=== PATIENT | female | born 1960 | race Two or more races ===

== ENCOUNTER 2017-03-22 17:47 | Emergency (ER) | payer SELFPAY ==
[2017-03-22 17:52] VITALS: BMI 22.9
[2017-03-22] MEDS ORDERED: ACETAMINOPHEN 325 MG TABLET (FP) PO ONE (19:45)
[2017-03-22] MEDS ORDERED: VALSARTAN 80 MG TABLET (UD) PO ONE (19:45)
--- NOTE | 2017-03-22 19:45 | PDOC ---
History of Present Illness - General History Source: Patient Exam Limitations: No Limitations - History of Present Illness Initial Comments: 03/23/17 00:00 Patient is a 56-year-old female history of gallstone, pancreatitis who presents to the ED with worsening left ear pain, swelling and redness. Patient was seen in [facility] 03/20 was diagnosed with perichondritis and was discharged on Clinda and Cipro. Patient presents today with worsening left ear pain. She states that she took only 2 pills of her abx today because she felt nauseous. Patient reports dizziness and headache since this AM. <Nori Sewell - Last Filed: 03/23/17 00:02> <Elena Priest - Last Filed: 03/23/17 03:13> - General Chief Complaint: Lightheaded Stated Complaint: HEADACHE/NAUSEA Time Seen by Provider: 03/22/17 18:18 Past History <Nori Sewell - Last Filed: 03/23/17 00:02> - Past Medical History Other medical history: NONE - Psycho/Social/Smoking Cessation Hx Anxiety: No Suicidal Ideation: No Smoking History: Current every day smoker Have you smoked in the past 12 months: No Number of Cigarettes Smoked Daily: 3 Information on smoking cessation initiated: Yes 'Breaking Loose' booklet given: 03/22/17 Hx Alcohol Use: No Drug/Substance Use Hx: No Substance Use Type: None Hx Substance Use Treatment: No <Elena Priest - Last Filed: 03/23/17 03:13> - Past Medical History Allergies/Adverse Reactions: Allergies Allergy/AdvReac Type Severity Reaction Status Date / Time No Known Allergies Allergy Verified 03/22/17 17:52 Home Medications: Ambulatory Orders Aspirin [ASA -] 325 mg PO PRN 05/04/16 Acetaminophen [Pain Relief] 650 mg PO Q8H PRN #60 tablet.er 05/06/16 Ciprofloxacin HCl [Cipro] 500 mg PO BID #20 tablet 03/20/17 Clindamycin [Cleocin -] 300 mg PO Q6HPO #40 capsule 03/20/17 Review of Systems - Review of Systems Able to Perform ROS?: Yes Comments:: 03/23/17 00:02 GENERAL/CONSTITUTIONAL: No fever or chills. No weakness. HEAD, EYES, EARS, NOSE AND THROAT: (+)left ear pain and swelling. No change in vision. No ear discharge. No sore throat. CARDIOVASCULAR: No chest pain or shortness of breath. RESPIRATORY: No cough, wheezing, or hemoptysis. GASTROINTESTINAL: No nausea, vomiting, diarrhea or constipation. GENITOURINARY: No dysuria, frequency, or change in urination. MUSCULOSKELETAL: No joint or muscle swelling or pain. No neck or back pain. SKIN: No rash NEUROLOGIC: (+) dizziness, (+)headache No vertigo, loss of consciousness, or change in strength/sensation. ENDOCRINE: No increased thirst. No abnormal weight change. HEMATOLOGIC/LYMPHATIC: No anemia, easy bleeding, or history of blood clots. ALLERGIC/IMMUNOLOGIC: No hives or skin allergy. <Nori Sewell - Last Filed: 03/23/17 00:02> *Physical Exam - Vital Signs Last Vital Signs Temp Pulse Resp BP Pulse Ox 98.2 F 74 18 154/92 100 03/22/17 17:48 03/22/17 17:48 03/22/17 17:48 03/22/17 17:48 03/22/17 17:48 - Physical Exam Comments: 03/23/17 00:03 GENERAL: Awake, alert, and fully oriented, in no acute distress HEAD: No signs of trauma EYES: PERRLA, EOMI, sclera anicteric, conjunctiva clear ENT: (+)Left fabian cellulitis. Auricles normal inspection, hearing grossly normal , nares patent, oropharynx clear without exudates. Moist mucosa NECK: Normal ROM, supple, no lymphadenopathy, JVD, or masses LUNGS: Breath sounds equal, clear to auscultation bilaterally. No wheezes, and no crackles HEART: Regular rate and rhythm, normal S1 and S2, no murmurs, rubs or gallops ABDOMEN: Soft, nontender, normoactive bowel sounds. No guarding, no rebound. No masses EXTREMITIES: Normal range of motion, no edema. No clubbing or cyanosis. No cords, erythema, or tenderness NEUROLOGICAL: Intact, Cranial nerves II through XII grossly intact. Normal speech, normal gait SKIN: Warm, Dry, normal turgor, no rashes or lesions noted. <Nori Sewell - Last Filed: 03/23/17 00:02> - Vital Signs Last Vital Signs Temp Pulse Resp BP Pulse Ox 98.2 F 74 18 154/92 100 03/22/17 17:48 03/22/17 17:48 03/22/17 17:48 03/22/17 17:48 03/22/17 17:48 <Elena Priest - Last Filed: 03/23/17 03:13> ED Treatment Course - ADDITIONAL ORDERS Additional order review: Laboratory Results 03/22/17 18:47 POC Glucometer [id number] 03/22/17 18:47 POC Glucometer 95.37216 - Medications Given in the ED: ED Medications Discontinued Medications Generic Name Dose Route Start Last Admin Trade Name Charlotte PRN Reason Stop Dose Admin Acetaminophen 650 mg 03/22/17 19:45 03/22/17 20:07 Tylenol - PO 03/22/17 19:46 650 mg ONCE ONE Administration Valsartan 80 mg 03/22/17 19:45 03/22/17 20:07 Diovan - PO 03/22/17 19:46 80 mg ONCE ONE Administration <Nori Sewell - Last Filed: 03/23/17 00:02> - LABORATORY CBC & Chemistry Diagram: 03/23/17 00:22 - ADDITIONAL ORDERS Additional order review: Laboratory Results 03/22/17 18:47 POC Glucometer [id number] 03/22/17 18:47 POC Glucometer [id number] <Elena Priest - Last Filed: 03/23/17 03:13> Medical Decision Making - Medical Decision Making 03/22/17 21:54 Patient Name: Gabriella Jones THIS IS A PRELIMINARY REPORT FROM [facility] EXAM: CT head without contrast IMAGES: 73 DATE OF SERVICE: 20:45:17.0 HISTORY:Dizziness, headache, hypertension COMPARISON: None. FINDINGS: 1. There is no evidence of an acute intracranial process, intracranial hemorrhage or mass effect. 2. The ventricles are normal size. 3. The visualized portions of the orbits, paranasal and mastoid sinuses are unremarkable. THIS DOCUMENT HAS BEEN ELECTRONICALLY SIGNED 03/23/17 03:08 Pt comes with dizziness and HTN incidentally; I gave her a dose of diovan; head CT was done. Pt has a normal head CT. Pt's CC today is that her left pinna remains infected. She agrees that she has not been taking the abx she was prescribed properly. Yesterday she took her QID clindamycin only 3x; today she took clinda 1x. SHe is taking her CIPRO properly, however. I explained to her that cartilage infections are notoriously difficult to treat and that it is imperative that she takes her clinda QID as prescribed, even if it is causing abd pain. I explained that she should take the meds with food if needed, so that she may tolerate it better. Pt will be discharged after a dose of IV 600mg clindamycin to catch her up. SHe is to follow with DR. Virgen, ENT, or to return for worsening cellulitis. 03/23/17 03:13 WBC is 10. Pt is stable for discharge. <Elena Priest - Last Filed: 03/23/17 03:13> *DC/Admit/Observation/Transfer <Nori Sewell - Last Filed: 03/23/17 00:02> - Discharge Dispostion Admit: No <Elena Priest - Last Filed: 03/23/17 03:13> Diagnosis at time of Disposition: Ear swelling, Pinna cellulitis - Discharge Dispostion Disposition: HOME Condition at time of disposition: Improved - Referrals Referrals: Irvin Virgen MD [Staff Physician] - - Patient Instructions Printed Discharge Instructions: DI for Cellulitis -- Adult Print Language: BAHRAINI
[2017-03-22] MEDS ORDERED: ACETAMINOPHEN 325 MG TABLET (FP) ONE (20:05)
[2017-03-22] MEDS ORDERED: VALSARTAN 80 MG TABLET (UD) ONE (20:07)
[2017-03-22] MEDS ORDERED: CLINDAMYCIN 600MG PREMIX IVPB 50 ML IVPB ONE (23:51)
[2017-03-23] MEDS ORDERED: CLINDAMYCIN 600MG PREMIX IVPB 50 ML IVPB ONE (00:04)
[2017-03-23 00:30] LABS: BASOPHIL 1.1 % (0-2.0); EOSINOPHIL 1.1 % (0-4.5); MCH 26.7 pg (25.7-33.7); MCHC 33.2 g/dl (32.0-36.0); MEAN CELL VOLUME 80.4 fl (80-96); MEAN PLT VOLUME 9.4 fl (7.5-11.1); NEUTROPHILS 59.8 % (42.8-82.8); PLATELET COUNT 251 K/MM3 (134-434); RDW 15.3 % (11.6-15.6); WHITE BLOOD COUNT 10.7 K/mm3 (4.0-10.0)
[2017-03-23 01:14] VITALS: BP 148/87; PULSE 72; TEMP 98
--- NOTE | 2017-03-23 14:03 | EKG ---
Test Reason : Blood Pressure : / mmHG Vent. Rate : 071 BPM Atrial Rate : 071 BPM P-R Int : 182 ms QRS Dur : 092 ms QT Int : 392 ms P-R-T Axes : 057 036 044 degrees QTc Int : 425 ms NORMAL SINUS RHYTHM WITH SINUS ARRHYTHMIA NORMAL ECG WHEN COMPARED WITH ECG OF 04-MAY-2016 06:26, NO SIGNIFICANT CHANGE WAS FOUND Confirmed by ANDRÉS CHEN MD ([id number]) on 03/23/2017 2:03:33 PM Referred By: Confirmed By:ANDRÉS CHEN MD
== END 2017-03-23 01:14 | disposition home or self-care (01) ==
LOC: JER 17:47
DX: H60.12 Cellulitis of left external ear (principal)
CPT/HCPCS: 36415; 70450-TC; 85025; 93005; 93010; 99283-25

== ENCOUNTER 2019-06-12 16:51 | Emergency (ER) | payer OTHER ==
[2019-06-12 16:58] VITALS: TEMP 98.4; BMI 24.1
[2019-06-12] MEDS ORDERED: LISINOPRIL 5 MG TABLET (FP) PO ONE (17:56)
[2019-06-12] MEDS ORDERED: SODIUM CHLORIDE 500 ML IV STA (18:01)
--- NOTE | 2019-06-12 18:03 | PDOC ---
History of Present Illness - General Chief Complaint: Blood Pressure Problem Stated Complaint: HYPERTENTION Time Seen by Provider: 06/12/19 17:17 History Source: Patient Exam Limitations: No Limitations - History of Present Illness Initial Comments: Pt is a 58 yo F, with PMH of HTN, pancreatitis, and cholelithiasis, who is presenting with complaints of high BP and light-headedness since 11am. Pt states she has had this problem before, but the light-headedness usually does not last this long. Pt states her symptoms started when she was attempting to stand from lying on the couch. Pt states she ran out of her BP medication 2 days ago. Pt does not know her baseline BP, which BP medications she takes, or the name of her PCP. Pt denies any fevers/chills, headache, vision changes, syncope, chest pain, palpitations, SOB, nausea/vomiting, abdominal pain, urinary symptoms, diarrhea/constipation, or leg swelling. Allergies: NKDA PCP: Isaiah Enamorado (Dr Steel, but sees various providers) Social: Pt denies any cigarette, alcohol, or drug use. Pt denies any recent travel or sick contacts. Surgical: no relevant history. Family: no relevant history. 06/12/19 17:57 Past History - Travel Traveled outside of the country in the last 30 days: No Close contact w/someone who was outside of country & ill: No - Past Medical History Allergies/Adverse Reactions: Allergies Allergy/AdvReac Type Severity Reaction Status Date / Time No Known Allergies Allergy Verified 06/12/19 16:58 Home Medications: Ambulatory Orders Lisinopril 5 mg PO DAILY 06/12/19 COPD: No HTN: Yes Hypercholesterolemia: Yes - Suicide/Smoking/Psychosocial Hx Smoking History: Never smoked Have you smoked in the past 12 months: No Number of Cigarettes Smoked Daily: 3 'Breaking Loose' booklet given: 03/22/17 Hx Alcohol Use: No Drug/Substance Use Hx: No Substance Use Type: None Hx Substance Use Treatment: No Review of Systems - Review of Systems Able to Perform ROS?: Yes Is the patient limited Nigerian proficient: No Constitutional: Yes: Weight Stable. No: Chills, Diaphoresis, Fever, Loss of Appetite, Malaise, Weakness HEENTM: No: Eye Pain, Blurred Vision, Recent change in vision, Double Vision, Nose Congestion, Tinnitus, Throat Pain, Throat Swelling, Difficulty Swallowing Respiratory: No: Cough, Orthopnea, Shortness of Breath Cardiac (ROS): Yes: Lightheadedness. No: Chest Pain, Edema, Irregular Heart Rate, Palpitations, Syncope, Chest Tightness ABD/GI: No: Constipated, Diarrhea, Nausea, Poor Appetite, Poor Fluid Intake, Vomiting : No: Burning, Dysuria, Pain, Urgency Musculoskeletal: No: Back Pain, Joint Pain, Muscle Pain, Muscle Weakness Integumentary: No: Rash Neurological: No: Headache, Numbness, Paresthesia, Tingling, Weakness, Unsteady Gait, Ataxia, Dizziness Psychiatric: No: Sleep Pattern Change, Change in Appetite Endocrine: No: Increased Urine, Change in Weight Hematologic/Lymphatic: No: Anemia, Blood Clots, Easy Bleeding, Easy Bruising *Physical Exam - Vital Signs Last Vital Signs Temp Pulse Resp BP Pulse Ox 98.4 F 74 18 160/106 H 100 06/12/19 16:53 06/12/19 16:53 06/12/19 16:53 06/12/19 16:53 06/12/19 16:53 - Physical Exam Comments: Vitals stable (HTN improved on exam to 149/90), pt afebrile. Pt in NAD, lying comfortably and eating on the stretcher. Normal body habitus. Pt alert and oriented x3. pricing strategist generally intact, muscular strength and sensation intact. Cerebellar exam WNL. No midline spinal tenderness, step-offs, or crepitus. Head normocephalic, atraumatic. Eyes PERRLA, EOMI. Oropharynx without erythema or exudates, no LAD b/l. No nasal congestion, hearing intact. Clear heart sounds, S1/S2, no JVD, b/l pedal edema, or heart murmur. Clear lung sounds, no respiratory distress, wheezes, crackles, or accessory muscle use. No abdominal or CVA tenderness to palpation, no rebound, no guarding. Abdomen soft, non-distended, and with normoactive bowel sounds. Skin without jaundice or rash. 06/12/19 18:00 Vital Signs - Vital Signs #1 Blood Pressure: 164/103 MAP: 123 BP Location: Right Arm Blood Pressure Position: Supine Pulse Rate: 72 #2 Blood Pressure: 161/97 MAP: 118 BP Location: Right Arm Blood Pressure Position: Standing Pulse Rate: 76 ED Treatment Course - LABORATORY CBC & Chemistry Diagram: 06/12/19 18:50 06/12/19 18:50 Medical Decision Making - Medical Decision Making Pt was seen at bedside, also will be seen by attending Dr. Lizama. Pt presenting with complaints of high BP and light-headedness after missing her BP medications x2 days after she ran out; story most consistent with hypertensive emergency. No FNDs or cerebellar abnormalities to suggest central lesion. Will control medication with home dose and reassess. Will evaluate for other electrolyte abnormalities, renal dysfunction, ACS, and likely discharge to home with BP medication refill if pt is improved. Provided 5 mg PO lisinopril (home dose confirmed with pharmacy) and 500 mL IVNS for improvement of hypertension and likely dehydration. Will continue to reassess pt and monitor for symptomatic improvement. 06/12/19 18:03 ECG: NSR, intervals WNL (HR 65, ID [id number], QRS 82, QTc 426). No TWIs or significant ST segment changes. No significant changes from prior ECG. 06/12/19 18:08 Orthostatic vital signs -- providing IVF 06/12/19 18:12 CBC and CMP generally WNL Pt providing urine for UA Pt ambulatory in ED without difficulty 06/12/19 19:49 Trop <.02 UA without blood or protein Pt ambulatory in ED BP improved, no longer orthostatic. Sent pts BP medication to her pharmacy. Considering normal lab results, pt can be discharged to home with follow-up. Pt advised to follow-up with PCP in 1-2 days. Strict return precautions provided with pt understanding. 06/12/19 20:22 06/12/19 20:54 *DC/Admit/Observation/Transfer Diagnosis at time of Disposition: Light-headed Hypertension Qualifiers: Hypertension type: essential hypertension Qualified Code(s): I10 - Essential ( primary) hypertension - Discharge Dispostion Disposition: HOME Condition at time of disposition: Improved Decision to Admit order: No - Referrals Referrals: Micaela Jo MD [Primary Care Provider] - - Patient Instructions Printed Discharge Instructions: DI for High Blood Pressure Additional Instructions: You were seen in the ER today for high blood pressure. The results of your labs today were normal/showed. Please follow-up with your primary care doctor within 1-2 days to discuss your visit and make sure your symptoms have improved. Please return to the ER if you have any worsening pain, development of fevers or chills, loss of consciousness, inability to tolerate food or fluids, or any other concerns. - Post Discharge Activity
--- NOTE | 2019-06-12 18:29 | PDOC ---
Documentation entered by Ria Sandhu SCRIBE, acting as scribe for Clifton Lizama MD. Clifton Lizama MD: This documentation has been prepared by the Edson davison Sammi, SCRIBE, under my direction and personally reviewed by me in its entirety. I confirm that the documentation accurately reflects all work, treatment, procedures, and medical decision making performed by me. Attending Attestation - Resident Resident Name: Elisabeth Alicea - ED Attending Attestation I have performed the following: I have examined & evaluated the patient, The case was reviewed & discussed with the resident, I agree w/resident's findings & plan, Exceptions are as noted - HPI HPI: 06/12/19 18:10 The patient is a 58 year old female, with a significant PMH of vertigo, HTN, cholelithiasis, pancreatitis, who presents to the emergency department for evaluation of symptoms of lightheadedness. The patient states she feels lightheaded and unsteady on her feet, especially when she gets up from a seated position. Pt states that this feel slightly similar to when she experiences vertigo, but she denies room-spinning sensation. She also complains of high blood pressure and notes she ran out of her blood pressure medication 2 days ago. Denies chest pain or shortness of breath. Denies fever, chills, nausea, vomiting , diarrhea and constipation. Denies dysuria, frequency, urgency and hematuria. Allergies: NKA Social: none reported PCP: Isaiah garrison - Physicial Exam PE: 06/12/19 18:30 "GENERAL: Awake, alert, and fully oriented, in no acute distress. HEAD: No signs of trauma EYES: PERRLA, EOMI, sclera anicteric, conjunctiva clear ENT: Auricles normal inspection, hearing grossly normal, nares patent, oropharynx clear without exudates. Moist mucosa NECK: Nontender, no stepoffs, Normal ROM, supple, no lymphadenopathy, JVD, or masses LUNGS: Breath sounds equal, clear to auscultation bilaterally. No wheezes, and no crackles HEART: Regular rate and rhythm, normal S1 and S2, no murmurs, rubs or gallops ABDOMEN: Soft, nontender, normoactive bowel sounds. No guarding, no rebound. No masses EXTREMITIES: Normal range of motion, no edema. No clubbing or cyanosis. No cords, erythema, or tenderness NEUROLOGICAL: Cranial nerves II through XII intact. 5/5 strength and sensation in all extremities, Normal speech, normal gait, normal cerebellar function SKIN: Warm, Dry, normal turgor, no rashes or lesions noted. - Medical Decision Making 06/12/19 18:30 58 F with lightheadedness, likely orthostatic, as pt reports positional trigger. Pt with no neuro deficits, no nystagmus, no room-spinning sensation to suggest vertigo. Pt is hypertensive in ED, likely 2/2 medication noncompliance. EKG wnl, no evidence of arrhythmia or ischemia. - Labs - Home dose of BP med - IV fluids 06/12/19 20:31 Labs wnl Refill of lisinopril sent to pt's pharmacy Pt with + orthostatics initially Will recheck after IVF bolus 06/12/19 20:55 Pt no longer orthostatic Pt is well appearing, with normal vitals. Clinically stable for DC at this time. I discussed the physical exam findings, ancillary test results and final diagnoses with the patient. I answered all of the patient's questions. The patient was satisfied with the care received and felt comfortable with the discharge plan and treatment plan. The patient agrees to follow up with the primary care physician within 24-72 hours.
[2019-06-12] MEDS ORDERED: LISINOPRIL 5 MG TABLET (FP) ONE (19:02)
[2019-06-12 19:05] LABS: BASO % 1.3 % (0-2.0); EOS % 0.7 % (0-4.5); HEMATOCRIT 42.1 % (32.4-45.2); LYMPH % 29.2 % (8-40); MCH 27.2 pg (25.7-33.7); MCHC 33.2 g/dl (32.0-36.0); MEAN CELL VOLUME 81.9 fl (80-96); MEAN PLT VOLUME 10.2 fl (7.5-11.1); MONO % 4.9 % (3.8-10.2); NEUT % 63.9 % (42.8-82.8); PLATELET COUNT 308 K/MM3 (134-434); RBC 5.14 M/mm3 (3.60-5.2); RDW 13.5 % (11.6-15.6); WHITE BLOOD COUNT 11.1 K/mm3 (4.0-10.0)
[2019-06-12 19:19] LABS: INR 1.01 (0.83-1.09); PROTHROMBIN TIME (PATIENT) 11.9 SEC (9.7-13.0)
[2019-06-12 19:28] LABS: ALBUMIN 4.2 g/dl (3.4-5.0); ALK PHOS 122 U/L (45-117); ANION GAP 6 MMOL/L (8-16); BILIRUBIN,TOTAL 0.3 mg/dL (0.2-1); BLOOD UREA NITROGEN 11.4 mg/dL (7-18); CALCIUM 9.5 mg/dL (8.5-10.1); CHLORIDE 108 mmol/L (98-107); CO2 25 mmol/L (21-32); CREATININE 0.8 mg/dL (0.55-1.3); GLUCOSE,RANDOM 118 mg/dL (74-106); MAGNESIUM 2.5 mg/dL (1.8-2.4); POTASSIUM 5.1 mmol/L (3.5-5.1); SGOT/AST 26 U/L (15-37); SGPT/ALT 24 U/L (13-61); SODIUM 139 mmol/L (136-145); TOT PROT 8.2 g/dl (6.4-8.2)
[2019-06-12 20:10] LABS: EPI CELLS 1.3 /HPF (0-5/HPF); HYALINE CASTS 1 /lpf (0-8); PH,URINE 6.5 (5.0-8.0); URINE APPEARANCE CLEAR; URINE BACTERIA 35.9 /hpf (NEGATIVE); URINE BILIRUBIN NEGATIVE (NEGATIVE); URINE COLOR YELLOW; URINE GLUCOSE (UA) NEGATIVE (NEGATIVE); URINE KETONE NEGATIVE (NEGATIVE); URINE LEUK ESTERASE 1+ (NEGATIVE); URINE NITRITE NEGATIVE (NEGATIVE); URINE PROTEIN NEGATIVE (NEGATIVE); URINE RBC 1 /hpf (0-4); URINE WBC 3 /hpf (0-5)
[2019-06-12 20:54] VITALS: BP 164/103; PULSE 72
--- NOTE | 2019-06-13 11:13 | EKG ---
Test Reason : Blood Pressure : / mmHG Vent. Rate : 065 BPM Atrial Rate : 065 BPM P-R Int : 174 ms QRS Dur : 082 ms QT Int : 410 ms P-R-T Axes : 046 025 037 degrees QTc Int : 426 ms NORMAL SINUS RHYTHM NORMAL ECG WHEN COMPARED WITH ECG OF 22-MAR-2017 20:08, T WAVE VARIATION Confirmed by ANDRÉS CHEN MD ([id number]) on 06/13/2019 11:12:37 AM Referred By: Confirmed By:ANDRÉS CHEN MD
== END 2019-06-12 21:45 | disposition home or self-care (01) ==
LOC: JER 16:51
PROC: 3E0337Z Introduction of Electrolytic and Water Balance Substance into Peripheral Vein, Percutaneous Approach (ICD-10-PCS; principal; 2019-06-12)
DX: I10 Essential (primary) hypertension (principal); R42 Dizziness and giddiness
CPT/HCPCS: 36415; 80053; 81003; 82550; 82553; 83735; 84484; 85025; 85610; 93005; 93010; 99284-25; J7030

== ENCOUNTER 2019-07-17 04:10 | Emergency (ER) | payer SELFPAY, OTHER | END 2019-07-17 10:37 | disposition home or self-care (01) | LOC: JER 04:10 ==

== ENCOUNTER 2020-07-23 12:29 | Emergency (ER) | payer SELFPAY ==
[2020-07-23] MEDS ORDERED: IBUPROFEN 600 MG TABLET (FP) PO ONE ×2 (12:40→12:49)
--- NOTE | 2020-07-23 12:40 | PDOC ---
Rapid Medical Evaluation Time Seen by Provider: 07/23/20 12:36 Medical Evaluation: Allergies Allergy/AdvReac Type Severity Reaction Status Date / Time No Known Allergies Allergy Verified 06/12/19 16:58 07/23/20 12:36 Pt presents for L heel pain for two days. She states it is worse in the morning. States she can't walk on the foot d/t the pain. Denies injury Exam: TTP of the L heel. (-) Peterson test, no calf pain Orders: Rebecca Pt to proceed to the ER for further evaluation Discharge Disposition - Diagnosis Foot pain, left - Referrals - Patient Instructions - Post Discharge Activity
[2020-07-23 12:42] VITALS: BP 145/75; PULSE 79; TEMP 98.6; BMI 30.2
--- NOTE | 2020-07-23 13:08 | PDOC ---
History of Present Illness - General Chief Complaint: Pain Stated Complaint: LT FOOT PAIN Time Seen by Provider: 07/23/20 12:36 History Source: Patient, Latent Fingerprint Examiner Used ([email or web address]#[id number]) Exam Limitations: Clinical Condition - History of Present Illness Initial Comments: 07/23/20 13:27 Patient with no significant past medical history present with complaint of 2 days history of pain to the heel of left foot status post getting out of bed 2 days ago and stepping on the heel with painful left foot upon stepping on foot. Denies any trauma or injury to foot. Patient reported has mild pain when she is now walking body feels sharp pain when she stepped on the heel of the left foot. Denies any other symptoms. Patient has not taken anything for symptoms Is this a multiple visit Asthma Patient?: No Timing/Duration: other (2 days) Severity: moderate Past History - Medical History Allergies/Adverse Reactions: Allergies Allergy/AdvReac Type Severity Reaction Status Date / Time No Known Allergies Allergy Verified 07/23/20 12:37 Home Medications: Ambulatory Orders Lisinopril 5 mg PO DAILY 06/12/19 Pantoprazole Sodium [Protonix] 40 mg PO DAILY #30 tablet. 07/17/19 Meloxicam 15 mg PO DAILY #10 tablet 07/23/20 COPD: No HTN: Yes Hypercholesterolemia: Yes - Immunization History Td Vaccination: Yes TDAP Vaccination: Yes Immunization Up to Date: Yes - Psycho-Social/Smoking History Smoking History: Current every day smoker Have you smoked in the past 12 months: Yes Number of Cigarettes Smoked Daily: 6 Information on smoking cessation initiated: Yes 'Breaking Loose' booklet given: 03/22/17 - Substance Abuse Hx (Audit-C & DAST Scrn) How often the patient has a drink containing alcohol: Never Score: In Men: 4 or > Positive; In Women: 3 or > Positive: 0 Screen Result (Pos requires Nsg. Audit-10AR): Negative In the last yr the pt used illegal drug/Rx for NonMed reason: No Score: Yes response is considered Positive: 0 Screen Result (Positive result requires Nsg. DAST-10): Negative Review of Systems - Review of Systems Able to Perform ROS?: Yes Is the patient limited Cymro proficient: No Constitutional: Yes: Unintentional Wgt. Loss. No: Chills, Fever, Malaise HEENTM: No: Symptoms Reported Respiratory: No: Symptoms reported Cardiac (ROS): No: Symptoms Reported Musculoskeletal: Yes: Symptoms Reported, See HPI, Muscle Pain (pain to bottom of left foot) Integumentary: No: Symptoms Reported, Change in Color Neurological: No: Symptoms reported, Numbness, Paresthesia, Tingling All Other Systems: Reviewed and Negative *Physical Exam - Vital Signs Last Vital Signs Temp Pulse Resp BP Pulse Ox 98.6 F 79 16 145/75 100 07/23/20 12:38 07/23/20 12:38 07/23/20 12:38 07/23/20 12:38 07/23/20 12:38 - Physical Exam 07/23/20 13:31 GENERAL: Well developed, well nourished. Awake and alert in mild acute distress. PULMONARY: No evidence of respiratory distress. MUSCULOSKELETAL :mild tenderness to plantar aspect of heel of left foot. No tenderness to rest of the foot. No visible swelling or deformity to foot. Patient walking with a limp on left foot due to pain. SKIN: Warm and dry. Normal capillary refill. No visible swelling or deformity to left foot NEUROLOGICAL: Alert, awake, appropriate. No motor deficits in the lower extremities. Gait is normal with mild limp to left foot from heel pain. PSYCHIATRIC: Cooperative. Good eye contact. Appropriate mood and affect. General Appearance: Yes: Nourished, Appropriately Dressed, Mild Distress ED Treatment Course - Medications Given in the ED: ED Medications Discontinued Medications Generic Name Dose Route Start Last Admin Trade Name Freq PRN Reason Stop Dose Admin Ibuprofen 600 mg 07/23/20 12:40 07/23/20 13:02 Motrin - PO 07/23/20 12:41 600 mg ONCE ONE Administration Medical Decision Making - Medical Decision Making 07/23/20 13:29 Patient with no significant past medical history present with complaint of 2 days history of pain to the heel of left foot status post getting out of bed 2 days ago and stepping on the heel with painful left foot upon stepping on foot. Denies any trauma or injury to foot. Patient reported has mild pain when she is now walking body feels sharp pain when she stepped on the heel of the left foot. Denies any other symptoms. Patient has not taken anything for symptoms Exam significant for mild tenderness to plantar aspect of heel of left foot. No tenderness to rest of the foot. No visible swelling or deformity to foot. Patient walking with a limp on left foot due to pain. X-ray of left foot shows tiny bone spur to heel of calcaneus otherwise no other findings. Patient symptoms likely plantar fasciitis from bone spur Postop hard shoe shoe given to patient. Motrin 600 mg ordered for pain. Patient stable for discharge on meloxicam. For pain and with advised to do warm soaks on the foot with podiatry follow-up Discharge - Discharge Information Problems reviewed: Yes Clinical Impression/Diagnosis: Foot pain, left, Plantar fasciitis of left foot Condition: Stable Disposition: HOME - Admission No - Additional Discharge Information Prescriptions: Meloxicam 15 mg PO DAILY #10 tablet - Follow up/Referral Referrals: Seth Smith DPM [Staff Physician] - - Patient Discharge Instructions Patient Printed Discharge Instructions: DI for Plantar Fasciitis Additional Instructions: Your x-ray shows a tiny bone spur in the back of the heel which is likely cause inflammation of the tendon of your foot. No fracture or acute abnormality on your foot. Your pain is likely caused by inflammation of the tendon of your foot. Take prescribed medication as prescribed for pain. Soak foot in [place] salt water as needed to help with pain. Follow-up referred to podiatry Rivera radiografa muestra un pequeo espoln judit en la parte posterior del taln que probablemente cause inflamacin del tendn de rivera pie. Sin fracturas ni anomalas agudas en el pie. Es probable que rivera dolor sea causado por la inflamacin del tendn de rivera pie. [place] los medicamentos recetados segn lo prescrito para el dolor. Remoje el pie en agua salada [place] segn sea necesario para aliviar el dolor. Seguimiento referido a podologa Print Language: GREEK - Post Discharge Activity
== END 2020-07-23 13:36 | disposition home or self-care (01) ==
LOC: JERFT 12:29
DX: M79.672 Pain in left foot (principal)
CPT/HCPCS: 73630-TC-LT; 99283-25